=== PATIENT | female | born 1950 | race Caucasian/White ===

== ENCOUNTER 2024-02-20 09:33 | Outpatient (CLI) | payer BC ==
[~2024-02-20 09:33] MED LIST: IODIXANOL 320 MG/ML INFUS..BTL 100ML IV ONE
[2024-02-20 10:09] LABS: BASOPHILS # (AUTO) 0.1 X10'3 (0-0.2); BASOPHILS % (AUTO) 0.6 % (0-1); EOSINOPHILS # (AUTO) 0.3 X10'3 (0-0.9); EOSINOPHILS % (AUTO) 3.7 % (0-6); HEMOGLOBIN 13.7 g/dl (12.0-16.0); LYMPHOCYTES # (AUTO) 1.5 X10'3 (1.1-4.8); LYMPHOCYTES % (AUTO) 15.4 % (21-51); MEAN CORPUSCULAR HGB CONC 33.3 g/dL (33.0-36.5); MEAN CORPUSCULAR VOLUME 83.9 FL (78-98); MEAN PLATELET VOLUME 6.9 FL (7.4-10.4); MONOCYTES # (AUTO) 0.6 X10'3 (0-0.9); MONOCYTES % (AUTO) 6.5 % (2-12); NEUTROPHILS % (AUTO) 73.8 % (42-75); PLATELET COUNT 385 X10'3 (140-440); RED BLOOD COUNT 4.89 X10'6 (4.20-5.60); RED CELL DISTRIBUTION WIDTH 16.3 % (11.5-14.5); WHITE BLOOD COUNT 9.5 X10'3 (4.5-11.0)
[2024-02-20 12:41] LABS: ALANINE AMINOTRANSFERASE 23 U/L (12-78); ALBUMIN 3.6 G/DL (3.4-5.0); ALBUMIN/GLOBULIN RATIO 0.9 (1.1-1.5); ALKALINE PHOSPHATASE 95 IU/L (46-116); ANION GAP 3 (8-16); ASPARTATE AMINO TRANSFERASE 17 U/L (10-37); BILIRUBIN,TOTAL 0.4 MG/DL (0.1-1.0); BLOOD UREA NITROGEN 16 MG/DL (7-18); BUN/CREATININE RATIO 22.2 (10.0-20.0); CALCIUM 10.2 MG/DL (8.5-10.1); CHLORIDE 103 MMOL/L (99-107); CREATININE 0.72 MG/DL (0.40-0.90); GLUCOSE 116 MG/DL (70-104); POTASSIUM 3.5 MMOL/L (3.5-5.1); PRO BRAIN NATRIURETIC PEPTIDE 113 PG/ML (0-125); SODIUM 139 MMOL/L (135-145); TOTAL CARBON DIOXIDE 32.7 MMOL/L (24-32); TOTAL PROTEIN 7.8 G/DL (6.4-8.2); eGFR 79 ML/MIN
[2024-02-20 12:49] LABS: APTT 29 SECONDS (22-32); PROTHROMBIN TIME 10.7 SECONDS (9.0-12.0)
== END 2024-02-20 23:59 | disposition home or self-care (01) ==
LOC: VAS 09:33
PROVIDERS: ATTEND Internal Medicine Cardiovascular Disease
DX: I65.02 Occlusion and stenosis of left vertebral artery (principal); I35.0 Nonrheumatic aortic (valve) stenosis; R06.02 Shortness of breath; I65.29 Occlusion and stenosis of unspecified carotid artery
CPT/HCPCS: 36415; 71046; 71275; 74174; 75572; 80053; 83880; 85025; 85610; 85730; 93880; Q9967

== ENCOUNTER 2024-04-30 08:05 | Inpatient (IN) | payer BC ==
[2024-04-24 12:00] LABS: BASOPHILS % (AUTO) 0.8 % (0-1); EOSINOPHILS # (AUTO) 0.3 X10'3 (0-0.9); EOSINOPHILS % (AUTO) 5.7 % (0-6); LYMPHOCYTES # (AUTO) 1.1 X10'3 (1.1-4.8); LYMPHOCYTES % (AUTO) 18.5 % (21-51); MEAN CORPUSCULAR HEMOGLOBIN 27.8 PG (27.0-31.0); MEAN CORPUSCULAR HGB CONC 32.8 g/dL (33.0-36.5); MEAN PLATELET VOLUME 6.7 FL (7.4-10.4); MONOCYTES # (AUTO) 0.6 X10'3 (0-0.9); MONOCYTES % (AUTO) 9.3 % (2-12); NEUTROPHILS # (AUTO) 3.9 X10'3 (1.8-7.7); NEUTROPHILS % (AUTO) 65.7 % (42-75); PRE OP HEMATOCRIT 37.2 % (35.0-45.0); PRE OP HEMOGLOBIN 12.2 g/dL (12.0-16.0); PRE OP PLATELET COUNT 390 X10'3 (140-440); PRE OP WHITE BLOOD COUNT 5.9 10'3 (4.8-10.8); RED BLOOD COUNT 4.38 X10'6 (4.20-5.60); RED CELL DISTRIBUTION WIDTH 15.2 % (11.5-14.5)
[2024-04-24 12:03] LABS: BILIRUBIN,URINE NEGATIVE (Neg); CLARITY,URINE SLIGHTLY CLOUDY (Clear); COLOR,URINE YELLOW (Yellow); GLUCOSE, URINE NEGATIVE (Neg); KETONES,URINE NEGATIVE (Neg); LEUKOCYTE ESTERASE ,URINE NEGATIVE (Neg); NITRITES, URINE NEGATIVE (Neg); OCCULT BLOOD,URINE NEGATIVE (Neg); PROTEIN,URINE NEGATIVE (Neg); UA COLLECTION TYPE CLN CATCH MIDSTREAM; UROBILINOGEN,URINE 0.2 E.U/dL (0.2-1.0)
[2024-04-24 12:12] LABS: PRE OP PROTIME 10.3 SECONDS (9.0-12.0)
[2024-04-24 12:13] LABS: BACTERIA,URINE NONE SEEN /HPF (Neg); MUCUS STRANDS NONE SEEN /LPF (Neg); RBC,URINE NONE SEEN /HPF (0-2); SQUAMOUS EPITHELIAL CELL,UR FEW /LPF (FEW); WBC,URINE NONE SEEN /HPF (0-4)
[2024-04-24 12:29] LABS: ALBUMIN 3.3 G/DL (3.4-5.0); ALBUMIN/GLOBULIN RATIO 0.8 (1.1-1.5); ALKALINE PHOSPHATASE 97 IU/L (46-116); BLOOD UREA NITROGEN 14 MG/DL (7-18); BUN/CREATININE RATIO 18.7 (10.0-20.0); CALCIUM 9.5 MG/DL (8.5-10.1); CHLORIDE 103 MMOL/L (99-107); CREATININE 0.75 MG/DL (0.40-0.90); PRE OP ALT 28 U/L (30-65); PRE OP ANION GAP 7 (8-16); PRE OP AST 17 U/L (10-37); PRE OP BILIRUB, TOTAL 0.3 MG/DL (0.0-1.0); PRE OP GLUCOSE 97 MG/DL (70-104); PRE OP POTASSIUM 3.8 MMOL/L (3.4-5.1); PRE OP SODIUM 141 MMOL/L (135-145); PRO BRAIN NATRIURETIC PEPTIDE 203 PG/ML (0-125); THYROID STIMULATING HORMONE 0.49 ulU/ml (0.34-4.50); TOTAL PROTEIN 7.3 G/DL (6.4-8.2); eGFR 76 ML/MIN
[2024-04-30] VITALS (23 sets, daily range): BP systolic 98–149; BP diastolic 51–75; PULSE 53–96; RESP 10–16; TEMP 97.3–97.8; O2SAT 92–98
[~2024-04-30] VITALS: Ht 157.5 cm; Wt 74.6 kg
[2024-04-30] MEDS: cefazolin 2gm/D5W 100mL 100 ML IV ONE (05:30)
[2024-04-30] MEDS: aspirin 325mg tablet PO ONE (05:30)
[2024-04-30] MEDS: DOCUMENT DATE & TIME OF BETA-BLOCKER PO ONE (06:30)
[2024-04-30] MEDS: protamine sulfate 10mg/ml inj. ONE (06:48)
[~2024-04-30 08:05] MED LIST changes: +AMLO2.5T2 PO; +ASCO100031 PO; +ASPI-612 PO; +CHOL500050 PO; +CLOP-32 PO; +EZET10TA6 PO; +FOLI1TAB27 PO; +HYDR25TA5 PO; -IODIXANOL 320 MG/ML INFUS..BTL 100ML IV ONE; +LEVO25TA2 PO; +METH25VI15 SQ; +METO-395 PO; +MULT-1085 PO; +PARO-141 PO; +ondansetron/PF 4mg/2ml inj IV PRN
[2024-04-30] MEDS: famotidine 20mg tablet PO ONE (09:00)
[2024-04-30] MEDS: ringers solution, lacted 1,000 ML IV SCH ×2 (09:01→10:55)
[2024-04-30] MEDS: vancomycin 1,500 MG in NS 300ml IV soln IV ONE (09:02)
[2024-04-30] MEDS ORDERED: heparin 1,000 UNITS/NS 500ml 1,500 ML ONE (09:04)
[2024-04-30] MEDS ORDERED: LIDOcaine 1% (10mg/ml) 2ml vial ONE (09:04)
[2024-04-30] MEDS ORDERED: iohexol 350MG/ML 100ml bottle IV ONE (09:04)
[2024-04-30] MEDS ORDERED: sevoflurane 250ml liquid IH ONE (10:16)
[2024-04-30] MEDS ORDERED: fentaNYL/PF 50MCG/1 ML 2ML syringe ONE (10:23)
[2024-04-30] MEDS ORDERED: midazolam 1 mg/ML 2ml injection ONE (10:23)
[2024-04-30] MEDS ORDERED: dexamethasone sod phosphate 4mg/ml inj. ONE (10:41)
[2024-04-30] MEDS ORDERED: heparin 1,000unit/ml 10ml vial 10 ML ONE (10:41)
[2024-04-30] MEDS ORDERED: propofol inj 20 ML IV ONE (10:41)
[2024-04-30] MEDS ORDERED: heparin 1,000 UNITS/NS 500ml 500 ML ONE (10:54)
[2024-04-30] MEDS ORDERED: meperidine/PF 25mg/ml syringe IV PRN ×3 (10:55)
[2024-04-30] MEDS ORDERED: morphine 4 MG/ML inj SYRINge IV PRN (10:55)
[2024-04-30] MEDS ORDERED: proCHLORperazine 10 MG/2 ml inj IV PRN ×2 (10:55→11:20)
[2024-04-30] MEDS ORDERED: morphine 2 MG/ML inj. syringe IV PRN (10:55)
[2024-04-30] MEDS ORDERED: ondansetron/PF 4mg/2ml inj IV PRN ×2 (10:55→11:20)
[2024-04-30] MEDS ORDERED: magnesium sulf-water 2g/50mL 50 ML IV PRN (11:20)
[2024-04-30] MEDS ORDERED: diphenhydrAMINE 25mg capsule PO PRN (11:20)
[2024-04-30] MEDS ORDERED: potassium Cl 20mEq/100mL bag 100 ML IV PRN (11:20)
[2024-04-30] MEDS ORDERED: ALPRAZolam 0.25mg tablet PO PRN (11:20)
[2024-04-30] MEDS ORDERED: potassium Cl 20 mEq SR tablet PO PRN (11:20)
[2024-04-30] MEDS ORDERED: potassium CL 10mEq/100ml bag 100 ML IV PRN (11:20)
[2024-04-30] MEDS ORDERED: potassium Cl 40MEQ/270ML bag 250 ML IV PRN (11:20)
[2024-04-30] MEDS ORDERED: docusate sod 100mg capsule PO PRN (11:20)
[2024-04-30] MEDS ORDERED: pantoprazole 40mg Tablet.DR PO PRN (11:20)
[2024-04-30] MEDS: normal saline 1000ml 1,000 ML IV SCH (11:20)
[2024-04-30] MEDS ORDERED: HYDROcodone/acetaminophen 5mg/325mg tablet PO PRN (11:20)
[2024-04-30] MEDS ORDERED: potassium Cl 40MEQ/1/2NS 520ml 520 ML IV PRN (11:20)
[2024-04-30] MEDS ORDERED: labetalol 20mg/4ml (5mg/ml) syringe IV PRN (11:20)
[2024-04-30] MEDS ORDERED: magnesium sulf-water 4G/100mL 100 ML IV PRN (11:20)
[2024-04-30] MEDS ORDERED: hydrALAZINE 20mg/ml inj. IV PRN (11:20)
[2024-04-30] MEDS: nitroPRUSSIDE (NIPRIDE) (200MCG/ML) 100ML Drip IV SCH (12:09)
[2024-04-30] MEDS: phenylephrine inj 50 MG in normal saline 250ml IV solN IV SCH (12:10)
[2024-04-30] MEDS: ceFAZolin 1GM/D5W- ADD-VANTAGE 50 ML IV SCH (15:54)
[2024-04-30] MEDS: sod chloride 0.9% 10ml flush syringe IV SCH (16:00)
[2024-04-30] MEDS: acetaminophen 325mg tablet PO PRN (16:02)
[2024-04-30] MEDS: vancomycin/NS 1 GM ADD-VANTAGE 250 ML IV SCH (21:01)
[2024-05-01 02:00] VITALS: BP 126/46; PULSE 77; RESP 13; TEMP 97.5; O2SAT 97
[2024-05-01 06:00] VITALS: BP 140/63; PULSE 70; RESP 18; TEMP 98.4; O2SAT 93
[2024-05-01 06:25] LABS: BASOPHILS % (AUTO) 0.2 % (0-1); EOSINOPHILS % (AUTO) 0 % (0-6); HEMATOCRIT 33.3 % (35.0-45.0); LYMPHOCYTES # (AUTO) 0.6 X10'3 (1.1-4.8); LYMPHOCYTES % (AUTO) 5.6 % (21-51); MEAN CORPUSCULAR HEMOGLOBIN 27.7 PG (27.0-31.0); MEAN CORPUSCULAR HGB CONC 32.9 g/dL (33.0-36.5); MEAN CORPUSCULAR VOLUME 84.2 FL (78-98); MONOCYTES # (AUTO) 0.6 X10'3 (0-0.9); MONOCYTES % (AUTO) 5.3 % (2-12); NEUTROPHILS # (AUTO) 10.1 X10'3 (1.8-7.7); NEUTROPHILS % (AUTO) 88.9 % (42-75); PLATELET COUNT 336 X10'3 (140-440); RED BLOOD COUNT 3.95 X10'6 (4.20-5.60); RED CELL DISTRIBUTION WIDTH 14.8 % (11.5-14.5); WHITE BLOOD COUNT 11.4 X10'3 (4.5-11.0)
[2024-05-01 07:00] LABS: ALANINE AMINOTRANSFERASE 24 U/L (12-78); ALBUMIN 2.9 G/DL (3.4-5.0); ALBUMIN/GLOBULIN RATIO 0.8 (1.1-1.5); ALKALINE PHOSPHATASE 81 IU/L (46-116); ANION GAP 10 (8-16); ASPARTATE AMINO TRANSFERASE 22 U/L (10-37); BILIRUBIN,TOTAL 0.3 MG/DL (0.1-1.0); BLOOD UREA NITROGEN 16 MG/DL (7-18); CHLORIDE 105 MMOL/L (99-107); CREATININE 0.64 MG/DL (0.40-0.90); GLUCOSE 124 MG/DL (70-104); POTASSIUM 3.5 MMOL/L (3.5-5.1); PRO BRAIN NATRIURETIC PEPTIDE 521 PG/ML (0-125); SODIUM 141 MMOL/L (135-145); TOTAL PROTEIN 6.6 G/DL (6.4-8.2); eCRCL 62 ML/MIN; eGFR > 90 ML/MIN
[2024-05-01 08:00] VITALS: RESP 18; O2SAT 93
[2024-05-01] MEDS: aspirin 81mg, enteric-coated 1 TAB TABLET.DR PO SCH (08:00)
[2024-05-01] MEDS ORDERED: CHOLECALCIFEROL PO SCH (08:00)
[2024-05-01] MEDS: folic acid 1mg tablet PO SCH (08:39)
[2024-05-01] MEDS: clopidogrel 75mg tablet PO SCH (08:41)
[2024-05-01] MEDS: amLODIPine 2.5mg tablet PO SCH (08:43)
[2024-05-01] MEDS: ezetimibe 10mg tablet PO SCH (08:44)
[2024-05-01] MEDS: HYDROchlorothiazide 25mg tablet PO SCH (08:44)
[2024-05-01] MEDS: levoTHYROXINE 100mcg tablet PO SCH (08:44)
[2024-05-01] MEDS: aspirin 81mg tab.chew PO SCH (08:45)
[2024-05-01] MEDS: multivitamins, therapeutics tablet PO SCH (08:48)
[2024-05-01] MEDS: metoprolol succinate 25mg (24-HOUR) SR. Tablet PO SCH (08:48)
[2024-05-01] MEDS: ascorbic acid 500mg tablet PO SCH (08:48)
[2024-05-01] MEDS: PARoxetine 20mg tablet PO SCH (08:49)
[2024-05-01 11:00] VITALS: BP 159/42; PULSE 68; RESP 16; TEMP 98.4; O2SAT 93
== END 2024-05-01 15:56 | disposition home or self-care (01) | DRG 266 ==
LOC: PAS IN 08:05 → PCU 3S 13:21
PROVIDERS: ADMIT Internal Medicine Cardiovascular Disease; ATTEND Internal Medicine Cardiovascular Disease
PROC: B41D1ZZ Fluoroscopy of Aorta and Bilateral Lower Extremity Arteries using Low Osmolar Contrast (ICD-10-PCS; 2024-04-30)
PROC: 03HY32Z Insertion of Monitoring Device into Upper Artery, Percutaneous Approach (ICD-10-PCS; 2024-04-30)
PROC: 02RF38Z Replacement of Aortic Valve with Zooplastic Tissue, Percutaneous Approach (ICD-10-PCS; principal; 2024-04-30 10:16)
DX: I35.0 Nonrheumatic aortic (valve) stenosis (principal); Z00.6 Encounter for examination for normal comparison and control in clinical research program; I50.33 Acute on chronic diastolic (congestive) heart failure; I25.10 Atherosclerotic heart disease of native coronary artery without angina pectoris; I11.0 Hypertensive heart disease with heart failure; M06.9 Rheumatoid arthritis, unspecified; E03.9 Hypothyroidism, unspecified
CPT/HCPCS: 33361; 36415; 71045; 71046; 76937; 80053; 81001; 82948; 83735; 83880; 84443; 85025; 85347; 85610; 85730; 86885; 86900; 86901; 86920; 87081; 93005; 93308; 93355; A4615; A4618; A6258; A6449; C1756; C1760; C1769; C1894; G0378; J0690; J1100; J1644; J2250; J2371; J2704; J2720; J3010; J3370; J3490; J7030; J7040; J7050; J7120; Q9967

== ENCOUNTER 2025-06-01 09:33 | Outpatient (CLI) | payer BC ==
[~2025-06-01 09:33] MED LIST changes: -ASCO100031 PO; +ASCO10004 PO; -ondansetron/PF 4mg/2ml inj IV PRN
--- NOTE | 2025-06-01 18:31 | CARDIOLOGY REPORT ---
APPROVED REPORT EXAM: Comprehensive 2D, Doppler, and color-flow Echocardiogram. Patient Location: OUT-PATIENT Blood Pressure: 144 / 54 mmHg Heart Rate: 52 bpm Rhythm: SINUS BRADYCARDIA Indications ONE YEAR FOLLOW-UP TAVR 26 mm Ortega Khurram 3 Ultra RESILIA Bioprosthetic TAVR 04/30/24 Front Desk Agent: Reji JOHNOSN MD / INTERVENTIONALIST: Katharine QUINONEZ MD Previous echo 05/01/24 [facility] JT EF 70-75%; JULIET 4.19; Peak v 2.40; Grad 23 / 12; TR PVL (2OCL TTE SA X); trMR; trTR; noPE 2D Dimensions RVDd 3.0 cm LA Minor4.9 cm LVOT Diameter 2.62 (1.8-2.4cm) M-Mode Dimensions Left Atrium(MM) 4.44 (2.5-4.0cm) IVSd 0.95 (0.7-1.1cm) LVDd 4.81 (4.0-5.6cm) Aortic Root 2.70 (2.2-3.7cm) PWd 0.89 (0.7-1.1cm) IVSs 1.35 cm MV EPSS 0.2 (<0.5cm) LVDs 3.00 (2.0-3.8cm) FS (%) 38 % PWs 1.27 cm ESV(Teich) 35.0 ml LVEF(%) 68 (>50%) Aortic Valve AoV Peak Geoffrey. 199.6 cm/s AoV VTI 42.8 cm AO Peak GR. 16.6 mmHg AO Mean GR. 8 mmHg LVOT VTI 31.19 cm LVOT Peak Geoffrey. 136.2 cm/s JULIET (VMAX) 3.68 cm2 JULIET (VTI) 3.92 cm2 Mitral Valve MV E Velocity 94.9 cm/s MV DECEL TIME 251 ms MV A Velocity 120.2 cm/s MV PHT 57 ms E/A Ratio 0.8 MVA (PHT) 3.88 cm2 TDI E/Medial E' 23.1 Pulmonary Vein S2 Velocity 48.43 cm/s PVa [id number] msec LEFT VENTRICLE Normal LV size and wall thickness. Overall systolic function is normal without intercavitary gradient detected at rest. LVEF is 65-70%. RIGHT VENTRICLE RV is normal size and function. ATRIA Left atrium is moderately dilated. AORTIC VALVE 26 mm Ortega Khurram 3 Ultra Resilia bioprosthetic TAVR appears well seated with normal function. AV A is measured at 3.70 cmsq. Peak / mean gradients of 16 / 8 mmHG. Peak velocity is measured at 2.07 m /sec. Trace paravalvular leak present at 2 o'clock in TTE SAX BASE. MITRAL VALVE Mild MV annular calcification without stenosis. Trace regurgitation. TRICUSPID VALVE TV appears structurally normal with trace regurgitation. PULMONIC VALVE Normal PV without stenosis, physiologic insufficiency. GREAT VESSELS Aortic root is normal in size. Normal appearing arch with normal flow velocities. Ascending aorta is normal in size. PERICARDIUM Normal pericardium. No effusion. Conclusion Normal LV size and wall thickness. Overall systolic function is normal without intercavitary gradient detected at rest. LVEF is 65-70%. RV is normal size and function. Left atrium is moderately dilated. 26 mm Ortega Khurram 3 Ultra Resilia bioprosthetic TAVR appears well seated with normal function. A VA is measured at 3.70 cmsq. Peak / mean gradients of 16 / 8 mmHG. Peak velocity is measured at 2.0 7 m/sec. Trace paravalvular leak present at 2 o'clock in TTE SAX BASE. Mild MV annular calcification without stenosis. Trace regurgitation. TV appears structurally normal with trace regurgitation. Normal pericardium. No effusion.
== END 2025-06-01 23:59 | disposition home or self-care (01) ==
LOC: CARD DIAG 09:33
PROVIDERS: ATTEND Internal Medicine Cardiovascular Disease
DX: Z48.812 Encounter for surgical aftercare following surgery on the circulatory system (principal); I08.8 Other rheumatic multiple valve diseases; Z95.2 Presence of prosthetic heart valve; R00.1 Bradycardia, unspecified; Z98.890 Other specified postprocedural states
CPT/HCPCS: 93306

== ENCOUNTER 2025-06-03 06:39 | Outpatient (CLI) | payer BC ==
--- NOTE | 2025-06-01 10:44 | ELECTROCARDIOGRAPH REPORT ---
[facility] Test Date: 2025-06-01 Test Time: 09:53:02 Pat Name: STEPHAN GARNER Department: PRE/OP CARDIOLOGY Room: Gender: F Bus [employer]er: XAVI : 1950 Requested By: NAVI QUINONEZ Order Number: [id number] Reading MD: Dr. GENA Ferrer Measurements Intervals [place] Rate: 55 P: 44 OK: 150 QRS: 4 QRSD: 93 T: 65 QT: 446 QTc: 427 Interpretive Statements Sinus bradycardia Left atrial enlargement Electronically Signed On 06-02-2025 16:49:[address] GENA Ferrer Please click the below link to view image of tracing.
--- NOTE | 2025-06-03 17:05 | CONSULTATION REPORT ---
History of Present Illness Providers to CC CC: KEYSHA BACON MD ~ Refering MD: Dr. Bacon History of Present Illness We had the pleasure of speaking with the patient for cardiovascular follow-up. They are now one year post transfemoral transcatheter aortic valve replacement. On 04/30/2024 they had a 26mm Ortega S3 Ultra Resilia valve placed via right femoral access with a perclose device placed. In the interim, reports feeling well overall. Has some days where she gets fatigued. Otherwise, Patient denies any chest pains, syncope, bleeding, lower-extremity edema. Allergies: Coded Allergies: No Known Drug Allergies (Verified Allergy, Unknown, 04/29/24) Uncoded Allergies: STATIN (Adverse Reaction, Unknown, LEG CRAMPING, 04/29/24) Home Medications Home Medications Active Reported Folic Acid* (Folic Acid) Y Tab 3 Tab PO DAILY 30 Days Vitamin C (Ascorbic Acid) 1,000 Mg Tablet 2,000 Mg PO DAILY 15 Days DIRECTED Vitamin D3 (Cholecalciferol (Vitamin D3)) 125 Mcg (5000 Unit) Capsule 2 Cap PO DAILY 30 Days Synthroid* (Levothyroxine Sodium) 25 Mcg Tablet 100 Mcg PO DAILY 30 Days Multi Vitamin Daily (Multivitamin) 1 Each Tablet 1 Each PO DAILY Methotrexate 25 mg/ml Vial (Methotrexate Sodium/Pf) 25 Mg/Ml Vial 25 Mg SQ Q7D Aspir 81 (Aspirin) 81 Mg Tablet.dr 1 Tab PO DAILY Plavix (Clopidogrel Bisulfate) 75 Mg Tablet 75 Mg PO DAILY Do not stop medication unless instructed by prescriber. Metoprolol Succinate 25 Mg Tab.sr.24h 25 Mg PO DAILY Norvasc* (Amlodipine Besylate) 2.5 Mg Tablet 5 Mg PO DAILY Hydrochlorothiazide 25 Mg Tab 1 Tab PO DAILY Zetia (Ezetimibe) 10 Mg Tablet 10 Mg PO DAILY Paxil (Paroxetine HCl) 20 Mg Tablet 1 Tab PO DAILY Review of Systems ROS ROS Comments: 14 point review of systems negative except what is reported above. Results Results/Orders Results/Orders EKG: Sinus leena, QRS 93ms ECHOCARDIOGRAM: LVEF 65-70%, Mean Gradient 9 mmHg, No pericardial effusion. Trace PVL. Assessment/Plan Problems/Diagnosis: (1) Aortic stenosis Assessment & Plan: Pleasant 74yo woman doing well after transfemoral transcatheter aortic valve replacement with an Ortega 26mm S3 Resilia valve on 04/30/2024. PLAN: 1. Endocarditis Prophylaxis for life. Patient educated. Dr. Ferrer, We thank you for allowing us the opportunity to help with the patient. They will see you back in the office shortly. JAVAD CASILLAS MD Jun 03, 2025 17:05
== END 2025-06-03 23:59 | disposition home or self-care (01) ==
LOC: TAVR 06:39
PROVIDERS: ATTEND Internal Medicine Cardiovascular Disease
DX: Z48.812 Encounter for surgical aftercare following surgery on the circulatory system (principal); Z95.2 Presence of prosthetic heart valve; R00.1 Bradycardia, unspecified; I51.7 Cardiomegaly
CPT/HCPCS: 93005